=== PATIENT | male | born 1955 | race Hispanic/Latino ===

== ENCOUNTER → 2023-09-11 | Outpatient (CLI) | payer OTHER | END | disposition home or self-care (01) | LOC: RAH 13:57 | PROVIDERS: ATTEND Urology | DX: T83.490A Other mechanical complication of implanted penile prosthesis, initial encounter (principal); M47.815 Spondylosis without myelopathy or radiculopathy, thoracolumbar region; I70.8 Atherosclerosis of other arteries; Y92.89 Other specified places as the place of occurrence of the external cause | CPT/HCPCS: 74176 ==